=== PATIENT | female | born 1945 | race Caucasian/White ===

== ENCOUNTER 2016-12-25 10:33 | Emergency (ER) | payer OTHER ==
[~2016-12-25] VITALS: Ht 170.2 cm; Wt 66.0 kg
[2016-12-25] MEDS ORDERED: DONE10TA14 PO (11:13)
[2016-12-25] MEDS ORDERED: METF500T4 PO (11:13)
[2016-12-25 11:28] LABS: HEMATOCRIT 44.4 % (34.6-47.8); HEMOGLOBIN 14.9 g/dL (11.7-16.4); WHITE BLOOD COUNT 7.7 x10^3/uL (3.4-10)
[2016-12-25 11:39] LABS: BLOOD UREA NITROGEN 11 mg/dL (7-18)
[2016-12-25 12:06] VITALS: BP 131/89
== END 2016-12-25 12:08 | disposition home or self-care (01) ==
LOC: ED 11:07
DX: I95.1 Orthostatic hypotension (principal); E11.9 Type 2 diabetes mellitus without complications; E78.00 Pure hypercholesterolemia, unspecified
CPT/HCPCS: 36415; 71010; 80048; 82040; 85025; 93005; 99285